=== PATIENT | male | born 1950 | race Caucasian/White ===

== ENCOUNTER → 2020-06-08 | Outpatient (CLI) | payer MEDICARE ==
[2020-06-08 23:07] LABS: MEAN CORP HGB 30.2 pg (26-34); RED CELL DISTRIBUTION WIDTH 13.1 % (11.5-14.5)
[2020-06-08 23:10] LABS: CALCIUM 9.1 mg/dL (8.4-10.5); CARBON DIOXIDE 27.1 mmol/L (20.0-32)
== END | disposition home or self-care (01) ==
LOC: LAB 21:34
PROVIDERS: ATTEND Internal Medicine
DX: E11.9 Type 2 diabetes mellitus without complications (principal); R19.7 Diarrhea, unspecified
CPT/HCPCS: 36415; 80053; 85027; 87804

== ENCOUNTER → 2021-10-26 | Outpatient (CLI) | payer MEDICARE, MEDICAID ==
[2021-10-26 20:56] LABS: BILIRUBIN,URINE NEGATIVE (NEGATIVE); UROBILINOGEN,URINE 0.2 E.U./dL (0.2)
== END | disposition home or self-care (01) ==
LOC: NPLAB 20:35
PROVIDERS: ATTEND Internal Medicine
DX: N18.9 Chronic kidney disease, unspecified (principal); R32 Unspecified urinary incontinence
CPT/HCPCS: 36415; 80061; 81003; 84153; 87086

== ENCOUNTER → 2022-04-28 | Outpatient (CLI) | payer MEDICARE, MEDICAID ==
[2022-04-28 14:33] LABS: BILIRUBIN,URINE NEGATIVE (NEGATIVE); UROBILINOGEN,URINE 0.2 E.U./dL (0.2)
== END | disposition home or self-care (01) ==
LOC: NPLAB 13:54
PROVIDERS: ATTEND Internal Medicine
DX: N18.9 Chronic kidney disease, unspecified (principal); Z79.899 Other long term (current) drug therapy
CPT/HCPCS: 81001; 87077; 87086; 87186